=== PATIENT | male | born 1990 | race Caucasian/White ===

== ENCOUNTER 2022-08-23 08:47 | Outpatient (CLI) | payer BC, SELFPAY ==
[2022-08-23 14:05] LABS: Cholesterol* 195 mg/dL (90-199); HDL Cholesterol* 71 mg/dL (>=40); LDL Cholesterol Calculated 103 mg/dL (<100); Triglycerides* 105 mg/dL (40-149)
== END 2022-08-23 08:48 | disposition home or self-care (01) ==
LOC: LONREF 08:48
PROVIDERS: PCP Family Medicine; Visit Provider Family Medicine
DX: Z13.6 Encounter for screening for cardiovascular disorders (principal)
CPT/HCPCS: 80061